=== PATIENT | female | born 1965 | race Caucasian/White ===

== ENCOUNTER 2019-08-13 05:38 | Day surgery (SDC) | payer MEDICAID ==
[~2019-08-13] VITALS: Ht 157.5 cm; Wt 68.9 kg
[2019-08-13] MEDS ORDERED: LACTATED RINGERS 1,000 ML IV SCH (06:30)
[2019-08-13 06:32] LABS: INR 0.9; PARTIAL THROMBOPLASTIN TIME 26.4 sec (23.4-31.0); PROTHROMBIN TIME 9.6 sec (9.6-11.0)
[2019-08-13] MEDS ORDERED: LIDOCAINE HCL 1% 20ML VIAL (Pyxis) INJ ONE (07:22)
[2019-08-13] MEDS ORDERED: NORMAL SALINE 0.9% 10 ML SYR ONE (07:22)
[2019-08-13] MEDS ORDERED: BUPIVACAINE HCL 0.5% (5MG/ML) 50ML ONE (07:22)
[2019-08-13] MEDS ORDERED: BACITRACIN 50,000 UNITS/VIAL ONE (07:23)
[2019-08-13] MEDS ORDERED: ONDANSETRON HCL 4MG/2ML INJ ONE (07:40)
[2019-08-13] MEDS ORDERED: PROPOFOL 200MG/20ML VIAL IV ONE (07:40)
[2019-08-13] MEDS ORDERED: FENTANYL CITRATE/PF 50MCG/ML 2ML VIAL ONE (07:40)
[2019-08-13] MEDS ORDERED: METOCLOPRAMIDE HCL 10MG/2ML VIAL ONE (07:40)
[2019-08-13] MEDS ORDERED: CEFAZOLIN SODIUM 1000MG/VIAL ONE (07:40)
[2019-08-13] MEDS ORDERED: MIDAZOLAM HCL 2 MG/2 ML VIAL ONE (07:40)
[2019-08-13] MEDS ORDERED: SKIN ADHESIVE 0.7 GM EA TOP ONE (08:23)
[2019-08-13] MEDS ORDERED: LIDOCAINE HCL/PF 1% 10 MG/ML 5ML VIAL ONE (08:25)
[2019-08-13] MEDS ORDERED: EPHEDRINE SULFATE 50MG/ML VIAL ONE (08:25)
[2019-08-13] MEDS ORDERED: KETOROLAC 30MG/ML VIAL ONE (08:27)
[2019-08-13] MEDS ORDERED: ONDANSETRON HCL 4MG/2ML INJ IV PRN (08:45)
[2019-08-13] MEDS ORDERED: MEPERIDINE HCL/PF 25MG/ML CPJ IV PRN (08:45)
[2019-08-13] MEDS ORDERED: MORPHINE SULFATE 2 MG/ML CPJ (NOT FOR IM USE) IV PRN (08:45)
[2019-08-13] MEDS ORDERED: HYDR25TA PO (08:50)
[2019-08-13] MEDS ORDERED: HYDR-4135 PO (08:50)
[2019-08-13] MEDS ORDERED: PANT40TA4 PO (08:50)
[2019-08-13] MEDS ORDERED: LOSA100T32 PO (08:50)
== END 2019-08-13 11:00 | disposition home or self-care (01) ==
LOC: OR 05:38
PROVIDERS: ATTEND Specialist
DX: D17.79 Benign lipomatous neoplasm of other sites (principal); L91.8 Other hypertrophic disorders of the skin; Z91.040 Latex allergy status; Z88.8 Allergy status to other drugs, medicaments and biological substances; Z79.01 Long term (current) use of anticoagulants; Z79.899 Other long term (current) drug therapy
CPT/HCPCS: 11200; 27043; 36415; 85610; 85730; 88304; J0690; J1885; J2250; J2405; J2704; J2765; J3010; J3490